=== PATIENT | female | born 1975 | race Caucasian/White ===

== ENCOUNTER 2017-11-29 20:53 | Emergency (ER) | payer BC, SELFPAY ==
[2017-11-29 20:58] VITALS: BP 129/74; PULSE 79; RESP 18; TEMP 37; O2SAT 98; BMI 31.4
[2017-11-29 22:15] VITALS: BP 109/67; PULSE 73; RESP 16; TEMP 37; O2SAT 98
== END 2017-11-29 22:21 | disposition left against medical advice (07) ==
LOC: ED 21:26
PROVIDERS: Emergency Provider Emergency Medicine; Family Provider Internal Medicine Geriatric Medicine; PCP Internal Medicine Geriatric Medicine
DX: I95.9 Hypotension, unspecified (principal)
CPT/HCPCS: 99281; 99282